=== PATIENT | female | born 1995 | race Two or more races ===

== ENCOUNTER 2020-11-30 13:48 | Emergency (ER) | payer MEDICAID ==
[~2020-11-30] VITALS: Ht 165.1 cm; Wt 40.8 kg
[2020-11-30 14:51] LABS: CREATININE 0.7 mg/dL (0.6-1.3); HEMATOCRIT 39.1 % (31.2-41.9); MEAN CORPUSCULAR HEMOGLOBIN 30.4 uug (24.7-32.8); MEAN CORPUSCULAR VOLUME 89.1 fL (75.5-95.3); PLATELET COUNT (AUTO) 267 K/uL (179-408); POTASSIUM 3.8 mmol/L (3.5-5.1)
[2020-11-30 14:51] LABS: *BILIRUBIN,URIN NEGATIVE (NEGATIVE); *BLOOD, URINE NEGATIVE (NEGATIVE); *CLARITY,URINE CLEAR (CLEAR); *COLOR,URINE YELLOW (YELLOW); *KETONES,URINE 3+ (NEGATIVE); *UROBILINOGEN,URINE 0.2 E.U./dl (NORMAL); LEUKOCYTE ESTERASE ,URINE NEGATIVE (NEGATIVE); NITRITE, URINE NEGATIVE (NEGATIVE); UGLUCOSE NEGATIVE (NEGATIVE)
[2020-11-30 14:52] LABS: *URINE HCG, QUAL NEGATIVE (NEGATIVE)
[2020-11-30 14:57] LABS: BILIRUBIN,TOTAL 1.1 mg/dL (0.2-1.0); TOTAL PROTEIN, SERUM 8.2 g/dL (6.4-8.2)
[2020-11-30] MEDS ORDERED: ONDANSETRON 4 MG/2 ML VIAL ONE (15:12)
[2020-11-30] MEDS ORDERED: IV NS 1000 ML 1,000 ML IV ONE (15:15)
[2020-11-30] MEDS ORDERED: ONDANSETRON 4 MG/2 ML VIAL IV ONE (15:15)
[2020-11-30] MEDS ORDERED: FAMOTIDINE. 20 MG/2 ML VIAL IV ONE ×2 (15:45→16:39)
[2020-11-30] MEDS ORDERED: MAG HYDROX/AL HYDROX/SIMETH 30 ML LIQUID UDC PO ONE (15:45)
[2020-11-30] MEDS ORDERED: FAMO-132 PO (16:34)
[2020-11-30] MEDS ORDERED: MAG HYDROX/AL HYDROX/SIMETH 30 ML LIQUID UDC ONE (16:39)
[2020-11-30] MEDS ORDERED: LORAZEPAM 2 MG/1 ML VIAL IV ONE (17:00)
[2020-11-30 17:40] VITALS: BP 110/78
== END 2020-11-30 17:40 | disposition home or self-care (01) ==
LOC: ER 13:48
DX: R10.13 Epigastric pain (principal); R10.11 Right upper quadrant pain; K80.20 Calculus of gallbladder without cholecystitis without obstruction
CPT/HCPCS: 36415; 76705; 80053; 81003; 83690; 84703; 85025; 96361; 96374; 96375; 99284; J2405; J3490; A4663; J7030